=== PATIENT | male | born 1950 | race Caucasian/White ===

== ENCOUNTER 2021-01-07 04:16 | Inpatient (IN) | payer MEDICARE ==
[2021-01-01 13:54] VITALS: BMI 22.5
[2021-01-07] MEDS ORDERED: SUCCINYLCHOLINE CHLORIDE 200 MG/10 ML SYRINGE ONE (14:59)
[2021-01-07] MEDS ORDERED: PROPOFOL 20 ML ONE ×2 (14:59)
[2021-01-07] MEDS ORDERED: fentaNYL CITRATE 250 MCG/5 ML VIAL ONE (14:59)
[2021-01-07] MEDS ORDERED: MIDAZOLAM HCL 2 MG/2 ML SINGLE DOSE VIAL ONE (14:59)
[2021-01-07] MEDS ORDERED: ROCURONIUM BROMIDE 100 MG/10 ML VIAL ONE (15:00)
[2021-01-07] MEDS ORDERED: BUPIVACAINE HCL/PF 0.5% (5MG/ML) 10 ML VIAL ONE (15:02)
[2021-01-07] MEDS ORDERED: oxyCODONE HCL 5 MG TABLET PO PRN ×2 (15:08→15:52)
[2021-01-07] MEDS ORDERED: ONDANSETRON 4 MG/2 ML VIAL IVPUSH PRN ×2 (15:08→15:52)
[2021-01-07] MEDS ORDERED: ceFAZolin 2 GRAM PREMIX BAG IVPB ONE (15:11)
[2021-01-07] MEDS ORDERED: LACTATED RINGERS SOLUTION 1,000 ML IV SCH (15:15)
[2021-01-07] MEDS ORDERED: ceFAZolin SODIUM 1 GM VIAL ONE (15:24)
[2021-01-07] MEDS ORDERED: BUPIVACAINE HCL/PF 0.5% (5MG/ML) 10 ML VIAL IJ ONE (15:52)
[2021-01-07] MEDS ORDERED: DEXTROSE 5%-0.45% SALINE 1,000 ML IV SCH (16:00)
[2021-01-07] MEDS ORDERED: NEOSTIGMINE METHYLSULFATE 0.5 MG/ML - 10 ML MDV ONE (16:02)
[2021-01-07] MEDS ORDERED: traMADol HCL 50 MG TABLET PO PRN (16:50)
[2021-01-07] MEDS ORDERED: NICOTINE 7 MG/24 HOURS TOPICAL PATCH TD SCH ×2 (17:45)
[2021-01-07] MEDS: NICOTINE 7 MG/24 HOURS TOPICAL PATCH TD SCH (23:32)
[2021-01-08] MEDS: IBUPROFEN 800 MG/8 ML IJ IVPB PRN (01:40)
[2021-01-08] MEDS: NICOTINE 7 MG/24 HOURS TOPICAL PATCH TD SCH (09:19)
[2021-01-08] MEDS: LORATADINE 10 MG TABLET PO SCH (09:19)
[2021-01-08] MEDS: amLODIPine BESYLATE 5 MG TABLET (FP) PO SCH (09:19)
[2021-01-08] MEDS: ACETAMINOPHEN 325 MG TABLET (FP) PO PRN ×2 (12:27→18:39)
[2021-01-08] MEDS: MAG HYDROX/AL HYDROX/SIMETH 30 ML UNIT-DOSE CUP PO PRN ×2 (15:19→21:02)
[2021-01-08] MEDS: TAMSULOSIN HCL 0.4 MG CAP PO SCH ×2 (20:30→21:02)
[2021-01-09] MEDS: ACETAMINOPHEN 325 MG TABLET (FP) PO PRN ×3 (02:09→23:22)
[2021-01-09] MEDS: MAG HYDROX/AL HYDROX/SIMETH 30 ML UNIT-DOSE CUP PO PRN ×2 (02:09→11:34)
[2021-01-09] MEDS: TAMSULOSIN HCL 0.4 MG CAP PO SCH (07:50)
[2021-01-09] MEDS: amLODIPine BESYLATE 5 MG TABLET (FP) PO SCH (09:39)
[2021-01-09] MEDS: LORATADINE 10 MG TABLET PO SCH (09:39)
[2021-01-09] MEDS: IBUPROFEN 800 MG/8 ML IJ IVPB PRN (09:39)
[2021-01-09] MEDS: NICOTINE 7 MG/24 HOURS TOPICAL PATCH TD SCH (09:39)
[2021-01-09] MEDS ORDERED: MAGNESIUM CITRATE 300 ML BOTTLE PO ONE (13:43)
[2021-01-09] MEDS: IBUPROFEN 600 MG TABLET (FP) PO PRN (23:22)
[2021-01-10] MEDS: TAMSULOSIN HCL 0.4 MG CAP PO SCH (08:19)
[2021-01-10] MEDS: LORATADINE 10 MG TABLET PO SCH ×2 (08:19→09:05)
[2021-01-10] MEDS: amLODIPine BESYLATE 5 MG TABLET (FP) PO SCH ×2 (08:19→09:06)
[2021-01-10] MEDS: NICOTINE 7 MG/24 HOURS TOPICAL PATCH TD SCH ×2 (08:19→09:05)
[2021-01-10] MEDS ORDERED: PT OWN MED DRAWER 7, Y5N ONE (09:15)
[2021-01-10] MEDS: IBUPROFEN 600 MG TABLET (FP) PO PRN (09:16)
[2021-01-10] MEDS: ACETAMINOPHEN 325 MG TABLET (FP) PO PRN (09:17)
[2021-01-10 12:48] VITALS: BP 120/73; PULSE 72; TEMP 98.2
== END 2021-01-10 15:43 | disposition home or self-care (01) | DRG 351 ==
LOC: JASUSAT 04:16 → JASU-SURG 04:16 → J6S 18:18 → JASUSAT 18:19 → J6S 18:19
PROVIDERS: ADMIT Surgery; ATTEND Surgery
PROC: 0YQ50ZZ Repair Right Inguinal Region, Open Approach (ICD-10-PCS; 2021-01-07)
PROC: 0YU50JZ Supplement Right Inguinal Region with Synthetic Substitute, Open Approach (ICD-10-PCS; principal; 2021-01-07 12:00)
DX: K40.30 Unilateral inguinal hernia, with obstruction, without gangrene, not specified as recurrent (principal); F10.19 Alcohol abuse with unspecified alcohol-induced disorder; R33.9 Retention of urine, unspecified; N99.89 Other postprocedural complications and disorders of genitourinary system; Y83.9 Surgical procedure, unspecified as the cause of abnormal reaction of the patient, or of later complication, without mention of misadventure at the time of the procedure
CPT/HCPCS: 94010; 94760